=== PATIENT | female | born 1940 | race Caucasian/White ===

== ENCOUNTER → 2021-07-16 00:51 | Outpatient (CLI) | payer MEDICARE, SELFPAY ==
[2021-07-17 10:58] LABS: SARS-CoV-2 RNA PCR Negative
== END ==
PROVIDERS: PCP Family Medicine; Visit Provider Family Medicine
DX: R68.89 Other general symptoms and signs (principal); Z20.822 Contact with and (suspected) exposure to COVID-19
CPT/HCPCS: C9803; U0003; U0005

== ENCOUNTER → 2021-10-20 09:41 | Outpatient (CLI) | payer MEDICARE, SELFPAY ==
--- NOTE | ~2021-10-20 | XR_ITS ---
EXAMINATION: XR chest 2V Exam Date/Time: 10/20/2021 10:03 CDT CLINICAL HISTORY: J44.9 - Chronic obstructive pulmonary disease, unspecified Comparison: 09/25/2016. RESULT: Lines, tubes, and devices: None. Lungs and pleura: Hyperinflation, biapical pleural thickening, senescent changes, otherwise clear. Cardiomediastinal silhouette: Stable cardiomediastinal silhouette. Other: No acute osseous or upper abdominal finding. IMPRESSION: No acute cardiopulmonary process Reviewed, dictated and finalized at location K.
== END ==
PROVIDERS: PCP Family Medicine; Visit Provider Family Medicine
DX: J44.9 Chronic obstructive pulmonary disease, unspecified (principal)
CPT/HCPCS: 71046

== ENCOUNTER 2022-07-05 14:29 | Emergency (ER) | payer MEDICARE, SELFPAY ==
--- NOTE | ~2022-07-05 | XR_ITS ---
XR chest 2V 07/05/2022 15:54 Indication: Cough and shortness of breath. Weakness. Procedure: AP and lateral views of the chest Comparison: 10/20/2021 Findings: Cardiomegaly. Mild interstitial edema. No significant pleural effusion. No pneumothorax. Th ere is atherosclerosis. Impression: 1: Cardiomegaly with mild interstitial edema. Reviewed, dictated and finalized at location A. DIEM RN Impression: 1: Cardiomegaly with mild interstitial edema.
[2022-07-05 14:31] VITALS: BP 123/83; PULSE 95; RESP 14; TEMP 37.6; O2SAT 96
[2022-07-05 14:48] LABS: Basophils Absolute Auto 0.1 K/mm3 (0.0-0.1); Basophils Percent Auto 0.8 % (0.2-1.2); Eosinophils Percent Auto 0.5 % (0-4.4); Hematocrit 34.8 % (37.0-47.0); Hemoglobin 11.8 g/dL (12.0-15.0); Immature Granulocyte Absolute 0.06 K/mm3 (0.00-0.031); Immature Granulocyte Percent A 0.8 % (0-0.5); Lymphocytes Absolute Auto 0.37 K/mm3 (0.9-3.2); Mean Corpuscular HGB Conc 33.9 g/dl (32-36); Mean Corpuscular Hemoglobin 28.8 pg (26-34); Mean Corpuscular Volume 84.9 fl (80-100); Mean Platelet Volume 9.1 fl (7.4-10.4); Monocytes Absolute Auto 0.8 K/mm3 (0.1-0.6); Neutrophils Percent Auto 81.9 % (45.5-73.1); Platelet Count Result 159 k/mm3 (150-375); Red Cell Distribution Width 12.6 % (11.5-14.5); White Blood Count 7.4 K/mm3 (4.5-10.0)
[2022-07-05 14:58] LABS: Alanine Aminotransferase 12 U/L (6-35); Albumin Level 3.9 g/dL (3.5-5.1); Alkaline Phosphatase 50 U/L (38-126); Anion Gap 14 mmol/L (8-16); Aspartate Amino Transferase 26 U/L (14-36); Bilirubin,Total 1.6 mg/dL (0.2-1.3); Blood Urea Nitrogen 31 mg/dL (7-17); Calcium 8.7 mg/dL (8.4-10.2); Carbon Dioxide 18 mmol/L (22-30); Chloride 99 mmol/L (98-107); Estimated CRCL calculation 18 ml/min; Estimated Glomerular Filt Rate 29; Glucose 181 mg/dL (65-110); Potassium 4.4 mmol/L (3.4-5.0); Sodium 131 mmol/L (137-145)
[2022-07-05 16:30] VITALS: BP 130/56; PULSE 91; TEMP 37.7; O2SAT 100
--- NOTE | 2022-07-05 19:28 | ED.SOB ---
HPI - SOB/Dyspnea General Chief Complaint: Shortness of Breath/Dyspnea Stated Complaint: short of breath cough, low O2, copd Time Seen by Provider: 07/05/22 19:15 Source: family Mode of arrival: ambulatory Limitations: dementia History of Present Illness HPI Narrative: 82-year-old with a history of Parkinson's, COPD was brought in by daughter with complaints of shortness of breath. She was diagnosed with COVID at home 3 days ago. Has cough which is nonproductive. No history of fever or chills. Daughter states that she would soon after she got out of the restroom her SPO2 dropped down to 86% however she remains here in 90s. Patient denies any chest pain. No history of nausea or vomiting. However she does complain of poor appetite. MD elicited complaint: shortness of breath and cough Pertinent past history: COPD Onset (ago): day(s) (1) Context: recent illness (Diagnosed with COVID 3 days ago) Timing: improved Severity: mild Exacerbating factors: exertion Relieving factors: nothing Known history of: COPD Treatment prior to arrival: none Related Data Home Medications Medication Instructions Recorded Confirmed cholecalciferol (vitamin D3) 25 1,000 unit PO DAILY 08/03/19 07/04/22 mcg (1,000 unit) capsule Allergies Allergy/AdvReac Type Severity Reaction Status Date / Time Penicillins Allergy Unknown Fainting Verified 10/09/21 14:37 Review of Systems Review of Systems: All systems reviewed & are unremarkable except as noted in HPI and below Constitutional: Constitutional: Reports no additional constitutional complaints Eyes: Eyes: Reports no additional eye complaints ENT: Reports system reviewed and no additional complaints, except as documented Cardiovascular: Cardiovascular: Reports no additional cardiovascular complaints Respiratory: Respiratory: Reports as per HPI Gastrointestinal: Gastrointestinal: Reports no additional gastrointestinal complaints Genitourinary: Genitourinary: Reports no additional female genitourinary complaints Musculoskeletal: Musculoskeletal: Reports no additional musculoskeletal complaints Neurologic: Reports system reviewed and no additional complaints, except as documented Psychiatric: Psychiatric: Reports no additional psychiatric complaints Endocrine: Endocrine: Reports no additional endocrine complaints [facility] Past Medical History Medical History (Updated 07/05/22 @ 19:37 by Miguel Colón MD) History of bone density study (~07/24/12) osteoporosis Family History Family History Father Diabetes mellitus, Onset Age: 88 Acute myocardial infarction, Onset Age: 88 Mother Patient's mother is , Onset Age: 67 Other Family history of cardiovascular disease Social History Social History Smoking status: Former smoker Smoking end date: 06/30/87 Alcohol intake: never Exam Narrative: GENERAL: Well-appearing, well-nourished, and in no acute distress. Hard of hearing HEAD: Normocephalic, atraumatic. EYES: PERRLA and EOMI. NECK: Supple. CHEST: Clear to auscultation. No respiratory distress. HEART: Regular rate and rhythm. No murmur heard. Normal peripheral pulses. ABDOMEN: Soft, nontender, nondistended, normal active bowel sounds. EXTREMITIES: Normal range of motion. No edema. SKIN: Warm, dry, no rash. NEURO: No focal deficits. Alert and oriented x3. PSYCH: Normal mood and affect. Course Course Emergency Course: Patient comfortably resting on the bed with SPO2 of 97 2 to 99% on room air she is in no distress. Informed patient and her daughter about the lab work. She does not want to be admitted. Advised her to try to rest and increase oral intake. Continue home medications. Return to the ER if there is increased shortness of breath. Vital Signs Vital signs: Vital Signs Temperature 37.6 C H 07/05/22 14:31
== END 2022-07-05 20:10 | disposition home or self-care (01) ==
LOC: ANHED 19:51
PROVIDERS: Emergency Medicine; Emergency Provider Family Medicine; PCP Internal Medicine
DX: U07.1 COVID-19 (principal); G20 Parkinson's disease; J44.9 Chronic obstructive pulmonary disease, unspecified; Z87.891 Personal history of nicotine dependence; I51.7 Cardiomegaly; J81.1 Chronic pulmonary edema
CPT/HCPCS: 36415; 71046; 80053; 85025; 99283

== ENCOUNTER 2022-07-22 17:06 | Outpatient (CLI) | payer MEDICARE, SELFPAY ==
[2022-07-22 18:01] LABS: Basophils Percent Auto 0.5 % (0.2-1.2); Eosinophils Absolute Auto 0.2 K/mm3 (0-0.3); Eosinophils Percent Auto 2.4 % (0-4.4); Hematocrit 38.2 % (37.0-47.0); Hemoglobin 12.4 g/dL (12.0-15.0); Immature Granulocyte Absolute 0.03 K/mm3 (0.00-0.031); Immature Granulocyte Percent A 0.4 % (0-0.5); Lymphocytes Absolute Auto 1.54 K/mm3 (0.9-3.2); Lymphocytes Percent Auto 19.3 % (18.3-44.2); Mean Corpuscular HGB Conc 32.5 g/dl (32-36); Mean Corpuscular Hemoglobin 28.5 pg (26-34); Mean Corpuscular Volume 87.8 fl (80-100); Mean Platelet Volume 9.3 fl (7.4-10.4); Monocytes Absolute Auto 0.7 K/mm3 (0.1-0.6); Monocytes Percent Auto 9.3 % (2.6-8.5); Neutrophils Absolute Auto 5.4 K/mm3 (1.3-6.7); Neutrophils Percent Auto 68.1 % (45.5-73.1); Platelet Count Result 252 k/mm3 (150-375); Red Blood Count 4.35 M/mm3 (4.2-5.4); Red Cell Distribution Width 14.1 % (11.5-14.5)
[2022-07-22 18:09] LABS: Alanine Aminotransferase 11 U/L (6-35); Albumin Level 3.8 g/dL (3.5-5.1); Alkaline Phosphatase 83 U/L (38-126); Anion Gap 8 mmol/L (8-16); Aspartate Amino Transferase 23 U/L (14-36); Bilirubin,Total 0.7 mg/dL (0.2-1.3); Blood Urea Nitrogen 26 mg/dL (7-17); Calcium 9.1 mg/dL (8.4-10.2); Carbon Dioxide 20 mmol/L (22-30); Chloride 102 mmol/L (98-107); Estimated Glomerular Filt Rate 25; Glucose 114 mg/dL (65-110); Potassium 5.1 mmol/L (3.4-5.0); Sodium 130 mmol/L (137-145)
== END 2022-07-22 17:07 | disposition home or self-care (01) ==
PROVIDERS: PCP Internal Medicine; Visit Provider Clinical Nurse Specialist
DX: N18.32 Chronic kidney disease, stage 3b (principal); E87.5 Hyperkalemia
CPT/HCPCS: 36415; 80053; 84443; 85025

== ENCOUNTER 2022-07-31 15:45 | Outpatient (CLI) | payer MEDICARE, SELFPAY ==
[2022-07-31 20:08] LABS: Anion Gap 4 mmol/L (8-16); Blood Urea Nitrogen 24 mg/dL (7-17); Calcium 9.2 mg/dL (8.4-10.2); Carbon Dioxide 27 mmol/L (22-30); Chloride 106 mmol/L (98-107); Estimated Glomerular Filt Rate 33; Glucose 210 mg/dL (65-110); Potassium 4.5 mmol/L (3.4-5.0); Sodium 137 mmol/L (137-145)
== END 2022-07-31 15:46 | disposition home or self-care (01) ==
LOC: ANHGOSHLAB 15:47
PROVIDERS: PCP Internal Medicine; Visit Provider Clinical Nurse Specialist
DX: E87.5 Hyperkalemia (principal)
CPT/HCPCS: 36415; 80048

== ENCOUNTER 2022-08-27 19:51 | Emergency (ER) | payer MEDICARE, SELFPAY ==
--- NOTE | ~2022-08-27 | CT_ITS ---
EXAMINATION: CT brain wo con DATE: 08/27/2022 20:29 INDICATION: fall . TECHNIQUE: Computed tomography (CT) of the head was performed without intravenous contrast. The mA wa s adjusted according to patient size. Iterative reconstruction technique was employed. The dose-lengt h product was 605.33 mGy-cm. COMPARISON: None. FINDINGS: No acute intracranial hemorrhage or extra-axial fluid collection. No hydrocephalus, mass, or herniation. No acute ischemic infarct. Unremarkable dural venous sinus attenuation. No acute osseous abnormality. Frontal scalp laceration and contusion. The aerated spaces are clear. Moderate atrophy and mild chronic white matter change. Atherosclerotic intracranial calcification. Bi lateral lens replacements. IMPRESSION: No acute intracranial process. Reviewed, dictated and finalized at location K. [facility] AND BAKER
--- NOTE | ~2022-08-27 | CT_ITS ---
EXAMINATION: CT facial & cervical spine wo DATE: 08/27/2022 20:31 INDICATION: fall TECHNIQUE: Computed tomography (CT) of the maxillofacial region and cervical spine was performed with out intravenous contrast. Automated exposure control and iterative reconstruction technique were empl oyed. The dose-length product was 178.71 mGy-cm. COMPARISON: None FINDINGS: CERVICAL: Vertebral Body Alignment: Intact. Craniocervical and atlantoaxial alignment: Mild degenerative change. Alignment intact. Osseous structures/fracture: No evidence of a lytic or blastic process in the visualized spine. No e vidence of acute fracture. Cervical soft tissues: The paraspinal soft tissues planes are maintained. Moderate aortic arch calcif ication. Senescent changes in the lungs. Biapical pleural scarring. Degenerative changes: Multilevel severe degenerative disc disease. Multilevel mild-moderate facet art hropathy. Severe bilateral neural foraminal narrowing and central canal narrowing at C5-6. FACE: Soft Tissues: Frontal soft tissue contusion and lacerations. Facial bones: No acute fracture. No lytic or blastic process. Eyes: The globes are intact. The soft tissue planes of the orbits are maintained. Paranasal Sinuses: The visualized aerated spaces are clear. Foreign Bodies: No radiopaque foreign bodies. Other Findings: Absent teeth. Periodontal disease. The mandibular canines and incisors are anteriorly angulated. IMPRESSION: No acute fracture or traumatic malalignment in the cervical spine. Anterior angulation of the mandibu lar canines and incisors, correlate for clinical findings of acute dental injury. Otherwise no additi onal acute facial bone fracture detected. Reviewed, dictated and finalized at location K. EU COUNSELOR IMPRESSION: No acute fracture or traumatic malalignment in the cervical spine. Anterior ang ulation of the mandibular canines and incisors, correlate for clinical findings of acute dental injury. Otherwise no additional acute facial bone fracture det ected.
[2022-08-27 19:58] VITALS: BP 122/78; PULSE 83; RESP 19; TEMP 36.7; O2SAT 100
[2022-08-28 00:02] VITALS: BP 144/65; PULSE 77; RESP 18; O2SAT 97
--- NOTE | 2022-08-28 00:19 | ED.FALL ---
HPI - Fall General Chief Complaint: Fall Stated Complaint: fall with head injury Time Seen by Provider: 08/27/22 23:21 Source: patient and family Mode of arrival: ambulatory Limitations: dementia History of Present Illness HPI Narrative: Patient is an 82-year-old female who presents the ED with report of fall with head injury. Family at bedside assisted in providing information. Patient has a history of dementia and is somewhat limited historian. Family reports patient got out of the car without waiting for help and fell to the ground. She did not lose consciousness. She sustained abrasions to her face and nose, and a laceration to her forehead. Family reports fall was mechanical, no signs of patient passing out. They report patient but has been at her baseline over the last couple of days. Patient denies any acute complaints. Denies any areas of pain. Denies chest pain or difficulty breathing. Tetanus status unknown. Related Data Home Medications Medication Instructions Recorded Confirmed cholecalciferol (vitamin D3) 25 1,000 unit PO DAILY 08/03/19 07/31/22 mcg (1,000 unit) capsule Allergies Allergy/AdvReac Type Severity Reaction Status Date / Time Penicillins Allergy Unknown Fainting Verified 08/27/22 19:51 Review of Systems Review of Systems: ROS unobtainable: Yes unobtainable due to mental status PMFSH Past Medical History Medical History Acute hyperkalemia Chronic obstructive pulmonary disease, unspecified COVID-19 Diabetic polyneuropathy associated with type 2 diabetes mellitus History of bone density study (~07/24/12) osteoporosis Mixed hyperlipidemia Occlusion and stenosis of unspecified carotid artery Parkinson disease Poor appetite Pressure ulcer Type 2 diabetes mellitus without complications Family History Family History Father Diabetes mellitus, Onset Age: 88 Acute myocardial infarction, Onset Age: 88 Mother Patient's mother is , Onset Age: 67 Other Family history of cardiovascular disease Social History Social History Smoking status: Former smoker Smoking end date: 06/30/87 Alcohol intake: never Lack of Transportation: No Lack of Food: Never True Current Housing: I Have Housing Concerned About Future Housing: No Difficulty Paying Gas/Electric Bills: No Difficulty Paying for Meds: No Currently Unemployed: No Education: High School Diploma/GED Difficulty w/ Childcare or Family Care: No Exam Narrative: GENERAL: Elderly, thin, non-toxic, in no acute distress. HEAD: Normocephalic. Approximately 2 cm laceration noted to right forehead, bleeding controlled. Smaller more superficial laceration to left forehead, no active bleeding. Scattered abrasions to nose and forehead. EYES: PERRLA/EOMI, conjunctiva clear. No periorbital swelling. ENT: Diffuse dental decay, anterior protrusion of lower teeth due to significant plaque buildup. No malocclusion or trismus. Swelling of right lower lip with area of contusion, no lacerations, no through and through lacerations. NECK: Supple. No adenopathy, no masses. No midline spinal tenderness. RESPIRATORY: Airway patent, respirations nonlabored. Clear to auscultation bilaterally, no rales, rhonchi, wheezing. CARDIOVASCULAR: Regular rate and rhythm without murmurs, rubs, or gallops. Peripheral pulses 2+ and equal bilaterally. ABDOMINAL: Soft, nontender, nondistended, no hepatosplenomegaly. Normoactive BS. MUSCULOSKELETAL: Moves all extremities. Strength/ROM intact without gross deformities. No midline thoracic or lumbar spinal tenderness. No tenderness along hips bilaterally. SKIN: Warm, dry, normal color. No rashes. NEURO: Alert. Frequently re-asks questions. Speech clear. Cranial nerves II-XII grossly intact. Steady
[2022-08-28] MEDS: TETANUS,DIPHTHERIA,AC PERTUSSIS ADULT (0.5 ML) BOOSTRIX IM (00:43)
[2022-08-28] MEDS: LIDOCAINE HCL 1% LOCAL INJ 10 ML VIAL 5 ML INFILTRATE (01:43)
[2022-08-28 01:46] VITALS: BP 153/70; PULSE 76; RESP 15; O2SAT 98
== END 2022-08-28 01:55 | disposition home or self-care (01) ==
PROVIDERS: Emergency Provider Physician Assistant; PCP Internal Medicine
DX: S01.81XA Laceration without foreign body of other part of head, initial encounter (principal); J44.9 Chronic obstructive pulmonary disease, unspecified; Z86.16 Personal history of COVID-19; E11.42 Type 2 diabetes mellitus with diabetic polyneuropathy; E78.5 Hyperlipidemia, unspecified; G20 Parkinson's disease; V48.4XXA Person boarding or alighting a car injured in noncollision transport accident, initial encounter; Z23 Encounter for immunization
CPT/HCPCS: 12011; 70450; 70486; 72125; 90471; 90715; 99284

== ENCOUNTER → 2022-09-05 15:47 | Outpatient (CLI) | payer MEDICARE, SELFPAY ==
--- NOTE | ~2022-09-05 | XR_ITS ---
XR chest 2V DATE: 09/05/2022 16:13 INDICATION: Chronic obstructive pulmonary disease TECHNIQUE: AP and lateral views COMPARISON: 07/05/2022 and lateral chest FINDINGS: Cardiomegaly. Aortic arch calcification. No hilar or mediastinal enlargement. Mild infiltrate or atelectasis at the lung bases. No pleural effusion or pulmonary vascular congestion or pneumothorax. Diffuse osteopenia. Dextroscoliosis of the thoracolumbar spine. IMPRESSION: Cardiomegaly, aortic atherosclerosis Mild infiltrate or atelectasis at the lung bases Osteopenia Reviewed, dictated and finalized at location L. DER SET UP OPERATOR [employer]
== END ==
PROVIDERS: PCP Internal Medicine; Visit Provider Clinical Nurse Specialist
DX: J44.9 Chronic obstructive pulmonary disease, unspecified (principal); M85.88 Other specified disorders of bone density and structure, other site; I51.7 Cardiomegaly; I70.0 Atherosclerosis of aorta
CPT/HCPCS: 71046

== ENCOUNTER 2022-09-06 19:33 | Outpatient (NON) | payer MEDICARE, SELFPAY ==
[2022-09-06 19:43] LABS: Appearance Urine Clear (Clear); Bilirubin Urine 1+ (Negative); Blood Urine Negative (Negative); Color Urine Yellow (Yellow); Glucose Urine UA Negative (Negative); Ketones Urine Trace mg/dL (Negative); Leukocyte Esterase Ur Negative LEU/UL (Negative); Nitrate Urine Negative (Negative); Protein Urine Negative (Negative); Urobilinogen Urine 0.2 mg/dL (<2.0)
[2022-09-06 19:49] LABS: Add Urine Microscopic? YES
[2022-09-06 19:52] LABS: RBC Urine 0-2 /hpf (0-2); Squamous Epithelial Cell Urine Few /hpf (Few); WBC Urine Rare /hpf (0-3)
[2022-09-06 19:53] LABS: Bacteria Urine None seen /hpf
== END 2022-09-06 19:34 | disposition home or self-care (01) ==
LOC: ANHLAB 19:35
PROVIDERS: PCP Internal Medicine; Visit Provider Clinical Nurse Specialist
DX: N39.9 Disorder of urinary system, unspecified (principal)
CPT/HCPCS: 81001

== ENCOUNTER 2022-10-04 13:47 | Outpatient (CLI) | payer MEDICARE, SELFPAY ==
--- NOTE | ~2022-10-04 | US_ITS ---
EXAMINATION: US renal BI DATE: 10/04/2022 14:28 INDICATION: Chronic kidney disease stage III B TECHNIQUE: Multiple grayscale and Doppler ultrasound images of the kidneys were obtained. COMPARISON: None. FINDINGS: The right kidney measures 9.5 x 4.1 x 5.0 cm. The left kidney measures 11.9 x 5.7 x 6.1 cm. The kidneys demonstrate normal parenchymal echogenicity. There is cortical thinning of the kidneys. There is no hydronephrosis. The bladder is normal. IMPRESSION: 1. Cortical thinning of the kidneys without hydronephrosis. Reviewed, dictated and finalized at location B.
== END 2022-10-04 13:48 | disposition home or self-care (01) ==
PROVIDERS: PCP Internal Medicine; Visit Provider Internal Medicine Nephrology
DX: N18.32 Chronic kidney disease, stage 3b (principal); E11.22 Type 2 diabetes mellitus with diabetic chronic kidney disease
CPT/HCPCS: 76775

== ENCOUNTER 2022-10-19 11:27 | Outpatient (CLI) | payer MEDICARE, SELFPAY ==
[2022-10-19 12:17] LABS: Creatinine Urine 109.6 mg/dL
[2022-10-19 12:20] LABS: Albumin Level 4.4 g/dL (3.5-5.1); Anion Gap 10 mmol/L (8-16); Blood Urea Nitrogen 35 mg/dL (7-17); Calcium 9.5 mg/dL (8.4-10.2); Carbon Dioxide 25 mmol/L (22-30); Chloride 104 mmol/L (98-107); Estimated Glomerular Filt Rate 43; Glucose 194 mg/dL (65-110); Phosphorus 3.8 mg/dL (2.5-4.5); Potassium 4.7 mmol/L (3.4-5.0); Sodium 139 mmol/L (137-145)
[2022-10-19 12:25] LABS: Complement C3 112 mg/dL (88-165)
[2022-10-19 13:33] LABS: Total Protein Urine Random < 5 mg/dL; Ur Ttl Prot Creatinine Ratio < 0.05 mg/mg (0-0.20)
[2022-10-23 16:56] LABS: Albumin 3.9 g/dL (3.8-4.8); Alpha 1 Globulin 0.3 g/dL (0.2-0.3); Alpha 2 Globulin 0.7 g/dL (0.5-0.9); Beta 1 Globulin 0.5 g/dL (0.4-0.6); Protein, Total 6.6 g/dL (6.1-8.1)
[2022-10-24 17:49] LABS: Anti Glomerular Basement Memb <1.0 AI (<1.0)
[2022-10-24 19:44] LABS: Creatinine, Random Urine 113 mg/dL (20-275); Total Protein/Creatinine Ratio 80 mg/g creat (24-184)
[2022-10-25 01:41] LABS: ANCA Screen Negative (Negative)
== END 2022-10-19 11:28 | disposition home or self-care (01) ==
PROVIDERS: PCP Internal Medicine; Visit Provider Internal Medicine Nephrology
DX: N18.32 Chronic kidney disease, stage 3b (principal); E11.22 Type 2 diabetes mellitus with diabetic chronic kidney disease
CPT/HCPCS: 36415; 80069; 82570; 83520; 84155; 84156; 84165; 84166; 86036; 86038; 86160; 86225

== ENCOUNTER 2022-11-09 12:30 | Outpatient (CLI) | payer MEDICARE, SELFPAY ==
[2022-11-09 14:14] LABS: Hemoglobin A1C 8.2 % (<5.7)
== END 2022-11-09 12:31 | disposition home or self-care (01) ==
PROVIDERS: PCP Internal Medicine; Visit Provider Clinical Nurse Specialist
DX: E11.9 Type 2 diabetes mellitus without complications (principal)
CPT/HCPCS: 36415; 83036

== ENCOUNTER 2023-02-22 11:46 | Outpatient (CLI) | payer MEDICARE, SELFPAY ==
[2023-02-22 12:35] LABS: Albumin Level 4.1 g/dL (3.5-5.1); Anion Gap 5 mmol/L (8-16); Blood Urea Nitrogen 35 mg/dL (7-17); Calcium 9.7 mg/dL (8.4-10.2); Carbon Dioxide 26 mmol/L (22-30); Chloride 102 mmol/L (98-107); Estimated Glomerular Filt Rate 33; Glucose 275 mg/dL (65-110); Phosphorus 3.8 mg/dL (2.5-4.5); Potassium 4.7 mmol/L (3.4-5.0); Sodium 133 mmol/L (137-145)
[2023-02-22 12:51] LABS: Parathyroid Intact 82.8 pg/mL (7.5-53.5)
[2023-02-22 12:53] LABS: Creatinine Urine 141.6 mg/dL
[2023-02-22 12:57] LABS: Vitamin D 25 Hydroxy 59.3 ng/mL
[2023-02-22 13:06] LABS: Creatinine Urine 141.1 mg/dL
[2023-02-22 13:12] LABS: MALB Creatinine Ratio 17.5 mg/g (0-30); Microalbumin Urine Random 24.7 mg/L (0-16.7)
[2023-02-22 13:31] LABS: Total Protein Urine Random < 5 mg/dL; Ur Ttl Prot Creatinine Ratio < 0.04 mg/mg (0-0.20)
== END 2023-02-22 11:47 | disposition home or self-care (01) ==
PROVIDERS: PCP Internal Medicine; Referring Provider Internal Medicine Nephrology; Visit Provider Clinical Nurse Specialist
DX: E11.22 Type 2 diabetes mellitus with diabetic chronic kidney disease (principal); N18.32 Chronic kidney disease, stage 3b; Z79.4 Long term (current) use of insulin; E55.9 Vitamin D deficiency, unspecified; N25.81 Secondary hyperparathyroidism of renal origin
CPT/HCPCS: 36415; 80069; 82043; 82306; 82570; 83036; 83970; 84156

== ENCOUNTER 2023-04-08 16:07 | Outpatient (NON) | payer MEDICARE, SELFPAY ==
[2023-04-08 18:48] LABS: Appearance Urine Cloudy (Clear); Bacteria Urine None Seen /hpf; Bilirubin Urine Negative (Negative); Blood Urine Negative (Negative); Color Urine Yellow (Yellow); Glucose Urine UA Trace mg/dL (Negative); Ketones Urine Negative (Negative); Leukocyte Esterase Ur 2+ LEU/UL (Negative); Nitrate Urine Negative (Negative); Non Pathogenic Casts 0-2; Protein Urine Negative (Negative); Specific Grav Ur 1.015 (1.001-1.035); Squamous Epithelial Cell Urine Occasional /hpf (Few); Urobilinogen Urine 0.2 mg/dL (<2.0); WBC Urine 21-50 /hpf; pH Urine 6.5 (5.0-9.0)
[2023-04-08 19:00] LABS: Add Urine Microscopic? YES
== END 2023-04-08 16:08 | disposition home or self-care (01) ==
LOC: ANHGOSHLAB 16:08
PROVIDERS: PCP Internal Medicine; Visit Provider Clinical Nurse Specialist
DX: R35.0 Frequency of micturition (principal)
CPT/HCPCS: 81001; 87086; 87088

== ENCOUNTER 2023-08-04 08:49 | Outpatient (CLI) | payer MEDICARE, SELFPAY ==
[2023-08-04 10:06] LABS: Albumin Level 3.8 g/dL (3.5-5.1); Anion Gap 8 mmol/L (8-16); Blood Urea Nitrogen 29 mg/dL (7-17); Carbon Dioxide 29 mmol/L (22-30); Chloride 103 mmol/L (98-107); Estimated Glomerular Filt Rate 39; Glucose 181 mg/dL (65-110); Phosphorus 3.9 mg/dL (2.5-4.5); Sodium 140 mmol/L (137-145)
[2023-08-04 10:15] LABS: Creatinine Urine 211.3 mg/dL; Total Protein Urine Random 6 mg/dL; Ur Ttl Prot Creatinine Ratio 0.03 mg/mg (0-0.20)
== END 2023-08-04 08:50 | disposition home or self-care (01) ==
LOC: ANHLAB 08:51
PROVIDERS: PCP Internal Medicine; Visit Provider Internal Medicine Nephrology
DX: E11.22 Type 2 diabetes mellitus with diabetic chronic kidney disease (principal); N18.32 Chronic kidney disease, stage 3b
CPT/HCPCS: 36415; 80069; 82570; 84156

== ENCOUNTER 2023-08-09 09:39 | Outpatient (CLI) | payer MEDICARE, SELFPAY ==
[2023-08-09 11:00] LABS: Hemoglobin A1C 7.6 % (<5.7)
[2023-08-09 12:15] LABS: Folic Acid 4.8 ng/mL (2.76->20); Vitamin B12 > 1000.0 pg/mL (239-931)
== END 2023-08-09 09:40 | disposition home or self-care (01) ==
LOC: ANHIMG 09:45
PROVIDERS: Clinical Nurse Specialist; PCP Internal Medicine; Visit Provider Student in an Organized Health Care Education/Training Program
DX: R41.89 Other symptoms and signs involving cognitive functions and awareness (principal); E11.9 Type 2 diabetes mellitus without complications
CPT/HCPCS: 36415; 82607; 82746; 83036; 84443

== ENCOUNTER 2023-11-07 11:43 | Outpatient (NON) | payer MEDICARE, SELFPAY ==
[2023-11-07 18:40] LABS: Appearance Urine Clear (Clear); Bilirubin Urine Negative (Negative); Blood Urine Negative (Negative); Color Urine Dark Yellow (Yellow); Glucose Urine UA Trace mg/dL (Negative); Ketones Urine Negative (Negative); Leukocyte Esterase Ur 1+ LEU/UL (Negative); Nitrate Urine Negative (Negative); Protein Urine Negative (Negative); Specific Grav Ur 1.015 (1.001-1.035); pH Urine 5.5 (5.0-9.0)
[2023-11-07 18:43] LABS: Add Urine Microscopic? NO
== END 2023-11-07 11:44 | disposition home or self-care (01) ==
PROVIDERS: PCP Internal Medicine; Visit Provider Clinical Nurse Specialist
DX: R39.9 Unspecified symptoms and signs involving the genitourinary system (principal)
CPT/HCPCS: 81003

== ENCOUNTER 2023-11-13 08:09 | Outpatient (CLI) | payer MEDICARE, SELFPAY | END 2023-11-13 08:10 | disposition home or self-care (01) | LOC: ANHAUDASC 08:10 | PROVIDERS: PCP Internal Medicine; Visit Provider Student in an Organized Health Care Education/Training Program | DX: H91.90 Unspecified hearing loss, unspecified ear (principal) | CPT/HCPCS: 99199 ==

== ENCOUNTER 2023-11-22 09:00 | Outpatient (CLI) | payer MEDICARE, SELFPAY ==
[2023-11-22 09:43] LABS: Anion Gap 9 mmol/L (4-12); Blood Urea Nitrogen 20 mg/dL (7-17); Calcium 10.3 mg/dL (8.4-10.2); Carbon Dioxide 27 mmol/L (22-30); Chloride 103 mmol/L (98-107); Estimated Glomerular Filt Rate 31; Glucose 145 mg/dL (65-110); Potassium 3.3 mmol/L (3.4-5.0); Sodium 139 mmol/L (137-145)
[2023-11-22 09:44] LABS: Hemoglobin A1C 7.8 % (<5.7)
== END 2023-11-22 09:01 | disposition home or self-care (01) ==
LOC: ANHLAB 09:03
PROVIDERS: PCP Internal Medicine; Visit Provider Clinical Nurse Specialist
DX: E11.22 Type 2 diabetes mellitus with diabetic chronic kidney disease (principal); E11.42 Type 2 diabetes mellitus with diabetic polyneuropathy; N18.32 Chronic kidney disease, stage 3b; Z79.4 Long term (current) use of insulin
CPT/HCPCS: 36415; 80048; 83036

== ENCOUNTER 2023-12-13 14:51 | Observation (INO) | payer MEDICARE, SELFPAY ==
--- NOTE | ~2023-12-13 | XR_ITS ---
XR chest 1V portable Ordering provider: Scott Fountain MD History: 83 years Female with . cough, AMS . Comparison: September 05, 2022 FINDINGS: MEDIASTINUM: The cardiac silhouette is not enlarged. LUNGS: No effusion or pneumothorax. Prominent markings in the left lung base is noted. Pneumonitis ca nnot be excluded. Underlying emphysematous changes. OTHER: No free air under the diaphragm. Degenerative changes of the spine. IMPRESSION: Prominent markings in the left lung base with possibility of pneumonitis cannot be excluded. Reviewed, dictated and finalized at location A.
--- NOTE | ~2023-12-13 | CT_ITS ---
CT brain wo con Ordering provider: Scott Fountain MD History: 83 years Female with . AMS . Comparison: August 27, 2022 Technique: CT of the head without contrast. Radiation reduction technique utilized. DLP is 605.33 mGy FINDINGS: BRAIN PARENCHYMA AND CSF SPACES: Deep white matter ischemic changes with mild brain atrophy. No midli ne shift, mass effect or hemorrhage. The brain parenchyma and CSF spaces are otherwise normal. VISUALIZED PARANASAL SINUSES: Left maxillary sinus disease MASTOIDS: Well aerated. BONES: The bones appear intact. SOFT TISSUES: Visualized nasopharynx is normal. Superficial soft tissues are normal. IMPRESSION: No acute intracranial findings. Left mandibular sinusitis. Reviewed, dictated and finalized at location A.
--- NOTE | ~2023-12-13 | XR_ITS ---
MODIFIED ESOPHAGRAM HISTORY: Parkinson's disease. Possible pneumonitis. TECHNIQUE: Modified barium esophagram was performed on 12/15/2023. I administered fluoroscopy and perf ormed the exam with speech pathologist. Patient was seated for lateral fluoroscopic imaging for kayode stion of thin liquids, pudding, solids and quantified amounts, followed by thin liquids in uncontroll ed amounts. This was recorded on tape. A single fluoroscopic spot image was also recorded. The DAP fo r this procedure was 1.88 Gycm2. The amount of fluoroscopy time used during this procedure was 2.8 mi nutes. FINDINGS: Oral stage: Adequate function. Pharyngeal stage: Mild residue in the vallecula and piriform sinuses. No laryngeal penetration or asp iration. Cervical/esophageal stage: Adequate function. IMPRESSION: Patient tolerated regular consistency oral feedings in the upright position. Please dawson elate with speech pathologist findings and specific feeding recommendations. Reviewed, dictated and finalized at location A. IMPRESSION: Patient tolerated regular consistency oral feedings in the upright position. Please correlate with speech pathologist findings and specific feedi ng recommendations.
[2023-12-13 14:51] VITALS: BP 121/63; PULSE 78; RESP 16; TEMP 37.1; O2SAT 97
--- NOTE | 2023-12-13 14:56 | ECG_ITS ---
Test Date: 2023-12-13 15:37:27 Measurements Intervals [place] Rate: 65 P: 30 DE: 165 QRS: 9 QRSD: 101 T: 109 QT: 415 QTc: 435 Interpretive Statements SINUS RHYTHM LOW QRS VOLTAGE IN PRECORDIAL LEADS [QRS DEFLECTION < 1.0 mV IN CHEST LEADS] INFERIOR MYOCARDIAL INFARCTION , PROBABLY OLD [40+ ms Q WAVE AND/OR ST/T ABNORMALITY IN II/aVF] MODERATE T-WAVE ABNORMALITY, CONSIDER LATERAL ISCHEMIA [-0.1+ mV T WAVE IN I/aVL/V5/V6] No previous ECG available for comparison Electronically Signed On 12-14-2023 12:58:05 CDT by Boubacar Lin M.D.
[2023-12-13 15:41] LABS: Basophils Percent Auto 0.5 % (0.2-1.2); Eosinophils Absolute Auto 0.3 K/mm3 (0-0.3); Eosinophils Percent Auto 3.5 % (0-4.4); Hematocrit 34.3 % (37.0-47.0); Immature Granulocyte Absolute 0.01 K/mm3 (0.00-0.031); Immature Granulocyte Percent A 0.1 % (0-0.5); Mean Corpuscular HGB Conc 32.1 g/dl (32-36); Mean Corpuscular Hemoglobin 27.4 pg (26-34); Mean Corpuscular Volume 85.3 fl (80-100); Mean Platelet Volume 9.6 fl (7.4-10.4); Monocytes Absolute Auto 0.7 K/mm3 (0.1-0.6); Monocytes Percent Auto 9.7 % (2.6-8.5); Neutrophils Absolute Auto 4.4 K/mm3 (1.3-6.7); Neutrophils Percent Auto 59.2 % (45.5-73.1); Platelet Count Result 204 k/mm3 (150-375); Red Blood Count 4.02 M/mm3 (4.2-5.4); Red Cell Distribution Width 14.3 % (11.5-14.5); White Blood Count 7.4 K/mm3 (4.5-10.0)
[2023-12-13 15:53] LABS: Alanine Aminotransferase 8 U/L (6-35); Albumin Level 3.5 g/dL (3.5-5.1); Alkaline Phosphatase 55 U/L (38-126); Anion Gap 7 mmol/L (4-12); Aspartate Amino Transferase 23 U/L (14-36); Blood Urea Nitrogen 18 mg/dL (7-17); Calcium 10.2 mg/dL (8.4-10.2); Carbon Dioxide 29 mmol/L (22-30); Chloride 105 mmol/L (98-107); Estimated CRCL calculation 17 ml/min; Estimated Glomerular Filt Rate 24; Glucose 176 mg/dL (65-110); Potassium 2.9 mmol/L (3.4-5.0); Sodium 141 mmol/L (137-145)
[2023-12-13 15:54] LABS: INR 1.1; Prothrombin Time 14.8 Seconds (11.1-14.7)
[2023-12-13 15:55] LABS: Partial Thromboplastin Time 29.5 Seconds (22.3-36.8)
[2023-12-13 16:17] LABS: Influenza A QL RT-PCR Negative (Negative); Influenza B QL RT-PCR Negative (Negative); RSV RNA, RT-PCR Negative (Negative); SARS-CoV-2 RNA PCR Negative (Negative)
[2023-12-13 16:46] VITALS: O2SAT 96
--- NOTE | 2023-12-13 16:56 | ED.AMS ---
HPI - Altered Mental Status General Chief Complaint: Altered Mental Status Stated Complaint: ams Time Seen by Provider: 12/13/23 14:54 History of Present Illness HPI narrative: 83-year-old female presented to the emergency department for evaluation for decreased p.o. intake blood course for the last 2 weeks. Patient does limit the daughter's home and help take care of her. Patient is not from a fpc. Family states that over the last 2 weeks patient has been more somnolent and has had decreased p.o. intake. Patient does have Parkinson's at baseline. Family is working on getting home health evaluation. Family does not want to have the patient placed into a care facility. They are hoping to have the patient treated and hopefully discharged back to their home. Related Data Home Medications Medication Instructions Recorded Confirmed cholecalciferol (vitamin D3) 25 1,000 unit PO DAILY 08/03/19 11/25/23 mcg (1,000 unit) capsule Allergies Allergy/AdvReac Type Severity Reaction Status Date / Time Penicillins Allergy Unknown Fainting Verified 12/13/23 14:57 Review of Systems Review of Systems: All systems reviewed & are unremarkable except as noted in HPI and below PMFSH Past Medical History Medical History (Updated 12/13/23 @ 17:56 by Scott Fountain MD) Acute hyperkalemia Chronic obstructive pulmonary disease, unspecified COVID-19 Diabetic polyneuropathy associated with type 2 diabetes mellitus History of bone density study (~07/24/12) osteoporosis Mixed hyperlipidemia Occlusion and stenosis of unspecified carotid artery Parkinson disease Poor appetite Pressure ulcer Type 2 diabetes mellitus without complications Family History Family History Father Diabetes mellitus, Onset Age: 88 Acute myocardial infarction, Onset Age: 88 Mother Patient's mother is , Onset Age: 67 Other Family history of cardiovascular disease Social History Social History Smoking status: Former smoker Smoking end date: 06/30/87 Alcohol intake: never Substance use: never Substance use type: does not use Do You Feel Safe in your Home?: Yes Lack of Transportation: No Lack of Food: Never True Current Housing: I Have Housing Concerned About Future Housing: No Difficulty Paying Gas/Electric Bills: No Difficulty Paying for Meds: No Currently Unemployed: No Education: High School Diploma/GED Difficulty w/ Childcare or Family Care: No Living arrangements: with family Gender identity (if verbalized by the patient): Female Exam Narrative: APPEARANCE: Somnolent appearing HEAD: normocephalic, atraumatic. EYES: PERRLA/EOMI, conjunctivae clear. NOSE: Normal no drainage EARS:TMS clear with good light reflex. THROAT: Pharynx clear, no exudate. NECK: Supple. No adenopathy, no masses. RESPIRATORY: Airway patent, respirations nonlabored. Clear to auscultation bilaterally, no rales, rhonchi, wheezing. CARDIOVASCULAR: Regular rate and rhythm without murmurs rubs or gallops. ABDOMINAL: Soft, nontender, nondistended, normal bowel sounds MUSCULOSKELETAL: Moves all extremities. Strength/ROM intact, No edema, No calf tenderness. NEURO: Alert. Cranial nerves II through XII intact. Grossly intact SKIN: Warm, dry. Normal Color Course Vital Signs Vital signs: Vital Signs Temperature 98.7 F 12/13/23 14:51 Pulse Rate 78 12/13/23 14:51 Respiratory Rate 16 12/13/23 14:51 Blood Pressure 121/63 12/13/23 14:51 Pulse Oximetry 97 12/13/23 14:51 Temperature 98.7 F 12/13/23 14:51 Pulse Rate 74 12/13/23 18:40 Respiratory Rate 19 12/13/23 18:40 Blood Pressure 151/59 H 12/13/23 18:40 Pulse Oximetry 97 12/13/23 18:40 Oxygen Delivery Room Air 12/13/23 16:46 MDM - Altered Mental Status MDM Narrative Medical decision making n
[2023-12-13 17:26] LABS: Appearance Urine Clear (Clear); Bacteria Urine None Seen /hpf; Bilirubin Urine Negative (Negative); Blood Urine Negative (Negative); Color Urine Yellow (Yellow); Glucose Urine UA Negative (Negative); Ketones Urine Negative (Negative); Leukocyte Esterase Ur Negative LEU/UL (Negative); Need Manual Microscopic Reviewed; Nitrate Urine Negative (Negative); Non Pathogenic Casts 0-2; Protein Urine 1+ mg/dL (Negative); RBC Urine 0-2 /hpf (0-2); Specific Grav Ur 1.015 (1.001-1.035); Squamous Epithelial Cell Urine None Seen /hpf (Few); WBC Urine 0-5 /hpf (0-3); pH Urine 5.5 (5.0-9.0)
[2023-12-13 17:27] LABS: Add Urine Microscopic? YES
[2023-12-13] MEDS: SODIUM CHLORIDE 0.9% IV 1,000 ML 999 ML IV CONT (18:29)
[2023-12-13] MEDS: levoFLOXacin 750 MG/D5W 150 ML 750 MG/150 ML BAG 100 MG IVPB (18:29)
[2023-12-13] MEDS: POTASSIUM CHLORIDE INJ 40 MEQ in SODIUM CHLORIDE 0.9% IV 500 ML 130 MEQ IVPB (18:33)
[2023-12-13 18:40] VITALS: BP 151/59; PULSE 74; RESP 19; O2SAT 97
[2023-12-13 19:09] VITALS: BP 132/68; PULSE 73; RESP 19; O2SAT 100
[2023-12-13 20:00] VITALS: PULSE 80; RESP 16; O2SAT 98
--- NOTE | 2023-12-13 20:16 | ADMGEN ---
This patient, Paris Shaikh, was admitted to 3 [facility] Surg Room 332-01. Patient/family oriented to hospital policies and general routines including ID bracelet, bed and alarms, visiting hours, pain management, procedures, bathroom and other care routines, personal items, smoking policy, room service/diet, and visiting hours. Information on how to activate the Rapid Response Team has been discussed. Patient/Family are encouraged to report perceived risks to care and to ask questions if they do not understand what they are told or what they should do.
[2023-12-13 22:00] VITALS: PULSE 80; RESP 16; TEMP 36.4; O2SAT 98
[2023-12-13 22:08] VITALS: BMI 18.6
[2023-12-13] MEDS: SODIUM CHLORIDE 0.9% IV 1,000 ML 125 ML IV CONT (23:03)
[2023-12-14] VITALS (8 sets, daily range): BP systolic 125; BP diastolic 97; PULSE 74–93; RESP 16–20; TEMP 35.9–36.4; O2SAT 95–96
--- NOTE | 2023-12-14 00:58 | PM.IMHP ---
H&P: HPI History of Present Illness Date/Time: 12/14/23 00:15 Chief Complaint: Altered mental status. Narrative: This is an 83-year-old female with dementia, Parkinson's disease, insulin-dependent diabetes, hypertension, chronic kidney disease, and anxiety who presented to the emergency department via EMS from home for evaluation of altered mental status. She is unable to provide an accurate history and a majority the following is obtained via a review of her EMR as well as information provided by her daughters. The patient is cared for by her 2 daughters and lives at home with 1 of them. She is essentially bedbound/recliner bound but has historically been able to stand and pivot to help transfer. However she has become increasingly weak over the past months and she is no longer able to bear weight. She has required increasing assistance with eating and her appetite and oral intake have been declining. She has lost about 10 to 15 lb in the last few months. On occasion it seems that she will cough with eating but family has not witnessed any episodes concerning for aspiration. She has been sleeping a lot more recently and seems to be more confused which is the reason why she was brought in. There are no reports of fever, cold or flu symptoms, vomiting, or diarrhea. The patient has not voiced any complaints. In the ED: She was afebrile on arrival with stable vital signs. Labs show an increase in creatinine from baseline and hypokalemia. She is being admitted for IV hydration. Review of Systems Review of Systems: Unable to obtain accurately given her dementia. [facility] Past Medical History Medical History (Updated 12/14/23 @ 15:26 by Princess Dorsey PA-C) Anxiety Chronic obstructive pulmonary disease, unspecified COVID-19 Diabetic polyneuropathy associated with type 2 diabetes mellitus History of bone density study (~07/24/12) osteoporosis Mixed hyperlipidemia Occlusion and stenosis of unspecified carotid artery Parkinson disease Type 2 diabetes mellitus without complications Surgical History Surgical History (Updated 12/14/23 @ 15:26 by Princess Dorsey PA-C) History of cataract extraction Family History Family History Father Diabetes mellitus, Onset Age: 88 Acute myocardial infarction, Onset Age: 88 Mother Patient's mother is , Onset Age: 67 Other Family history of cardiovascular disease Social History Social History (Updated 12/14/23 @ 15:27 by Princess Dorsey PA-C) Social History: Surrogate medical decision maker: Kartik Mujica, daughter. Code status: Do not resuscitate. Smoking packs per day: 2 Smoking cigarettes per day: 40.0 Years smoked: 20 Smoking pack-years: 40.00 Smoking status: Former smoker Tobacco type: cigarettes Smoking end date: 06/30/99 Alcohol intake: never Substance use: never Substance use type: does not use Do You Feel Safe in your Home?: Yes Lack of Transportation: No Lack of Food: Never True Current Housing: I Have Housing Concerned About Future Housing: No Difficulty Paying Gas/Electric Bills: No Difficulty Paying for Meds: No Currently Unemployed: No Education: High School Diploma/GED Difficulty w/ Childcare or Family Care: No Living arrangements: with family Spiritual care concerns: No Meds Home Medications and Allergies Home Medications Medication Instructions Recorded Confirmed Type cholecalciferol (vitamin D3) 25 1,000 unit PO DAILY 08/03/19 12/13/23 History mcg (1,000 unit) capsule albuterol sulfate 90 mcg/actuation 1 inh inhalation Q4H PRN shortness 07/04/22 12/13/23 Rx aerosol inhaler of breath or wheezing #8.5 grams blood sugar diagnostic #200 07/31/22 12/13/23 Rx blood-glucose meter #1 ea 07/31/22 12/13/23 Rx lancets 31 gauge #100 07/31/22 12/13/23 Rx insulin glargine 100 unit/mL (3 12 unit (0.12 mL) subcut
[2023-12-14 01:30] LABS: Anion Gap 5 mmol/L (4-12); Blood Urea Nitrogen 16 mg/dL (7-17); Calcium 9.3 mg/dL (8.4-10.2); Carbon Dioxide 26 mmol/L (22-30); Chloride 113 mmol/L (98-107); Estimated CRCL calculation 17 ml/min; Estimated Glomerular Filt Rate 29; Glucose 100 mg/dL (65-110); Magnesium 1.7 mg/dL (1.6-2.3); Potassium 3.4 mmol/L (3.4-5.0); Sodium 144 mmol/L (137-145)
[2023-12-14 02:02] LABS: Creatine Kinase 138 U/L (30-135)
[2023-12-14] MEDS: CARBIDOPA/LEVODOPA 25/100 MG TABLET 1 TABLET PO ×3 (05:32→21:16)
[2023-12-14] MEDS: LACTATED RINGERS 1,000 ML 75 ML IV CONT (05:33)
[2023-12-14 08:09] LABS: Glucose Point of Care 97 mg/dl (65-105)
[2023-12-14 11:36] LABS: Glucose Point of Care 93 mg/dl (65-105)
[2023-12-14] MEDS: ASPIRIN 325 MG TABLET PO (11:42)
[2023-12-14] MEDS: VITAMIN B COMPLEX CAPSULE 1 CAP PO (11:42)
[2023-12-14] MEDS: lisinopriL 5 MG TABLET PO (11:42)
[2023-12-14] MEDS: SIMVASTATIN 20 MG TABLET 40 MG PO (11:42)
[2023-12-14] MEDS: CHOLECALCIFEROL 1,000 UNITS TABLET 1000 UNITS PO (11:42)
[2023-12-14] MEDS: FLUoxetine HCL 10 MG CAPSULE PO (11:45)
--- NOTE | 2023-12-14 13:32 | PCSTNOTE ---
Modified Barium Swallow study will be schedule for Friday morning.
--- NOTE | 2023-12-14 14:21 | P.PNCROSS_ITS ---
Event Note Event Note Event Note: Patient seen at bedside. 25+ minute discussion held with the oldest daughter Elma Shaikh about Paris Shaikh's condition. We discussed the patient's age, COPD, Parkinson's disease and other comorbidities in the setting of progressive decline with weakness, decreased functional status, choking on her sputum production. Goals of care carefully discussed after weighing risks versus benefits of continued aggressive treatment. The daughter was having home health set up this week had the patient not been admitted. The daughter educated on speech language pathologist consultation with swallow studies and evaluation of safe swallowing versus PEG tube, what palliative versus hospice care is in the setting of chronic and serious/end-stage illness. This was done in a compassionate manner and and the life insurance underwriter disclosed that Parkinson's with progressive decline this is an indication the patient could have multiple readmissions to the hospital. The patient's daughter understood and all of her questions were answered. He decided independently to choose to make the patient DNR/DNI as well as likely proceed with hospice. Hospice consult placed for tomorrow December 15, 2023. equipment worker consulted to have surrogate form completed. Patient's daughter reports the patient was agitated overnight and did not sleep. Melatonin 5 mg p.o. q.h.s. p.r.n.. Can use Ativan if needed, discussed with the patient's daughter 1st about the risk. Continue other medications for now a lthough suspect we will move forward with hospice tomorrow at which point continue carbidopa levodopa only. DNR/DNI.
[2023-12-14 16:30] LABS: Glucose Point of Care 110 mg/dl (65-105)
[2023-12-14 21:10] LABS: Glucose Point of Care 146 mg/dl (65-105)
[2023-12-14] MEDS: MELATONIN 5 MG TABLET PO (21:16)
[2023-12-15] VITALS: PULSE 72
[2023-12-15 04:00] VITALS: PULSE 79
[2023-12-15] MEDS: CARBIDOPA/LEVODOPA 25/100 MG TABLET 1 TABLET PO ×3 (05:42→21:15)
[2023-12-15 06:00] VITALS: BP 110/70; PULSE 74; RESP 16; TEMP 36.6; O2SAT 96
[2023-12-15 07:48] LABS: Glucose Point of Care 100 mg/dl (65-105)
[2023-12-15] MEDS: FLUoxetine HCL 10 MG CAPSULE PO (10:37)
[2023-12-15] MEDS: CHOLECALCIFEROL 1,000 UNITS TABLET 1000 UNITS PO (10:37)
[2023-12-15] MEDS: VITAMIN B COMPLEX CAPSULE 1 CAP PO (10:37)
[2023-12-15] MEDS: lisinopriL 5 MG TABLET PO (10:37)
[2023-12-15] MEDS: SIMVASTATIN 20 MG TABLET 40 MG PO (10:37)
--- NOTE | 2023-12-15 11:02 | PCSTNOTE ---
Please refer to the Modified Barium Swallow Evaluation in the EMR.
[2023-12-15 11:35] LABS: Glucose Point of Care 113 mg/dl (65-105)
[2023-12-15 14:00] VITALS: BP 115/75; PULSE 76; RESP 20; TEMP 36.6; O2SAT 98
[2023-12-15 14:16] VITALS: BMI 19.8
[2023-12-15 16:05] LABS: Glucose Point of Care 102 mg/dl (65-105)
--- NOTE | 2023-12-15 16:05 | PM.IMPN ---
Progress Note: A&P Assessment and Plan (1) Abnormal chest x-ray: Code(s): R93.89 - Abnormal findings on diagnostic imaging of other specified body structures Status: Acute (2) Dementia in Parkinson's disease: Code(s): G20.A1 - Parkinson's disease without dyskinesia, without mention of fluctuations; F02.80 - Dementia in other diseases classified elsewhere, unspecified severity, without behavioral disturbance, psychotic disturbance, mood disturbance, and anxiety Status: Acute Plan Hospice consultation has been completed. Possible bed will be delivered to the house tomorrow and that is when we anticipate discharge. No other acute events today. Continue melatonin for sleep at night. Daughter has no concerns. DNR/DNI. Comfort measures may be instituted if the daughter wishes. Continue carbidopa levodopa. Subjective Date/time seen: 12/15/23 16:05 Interval history: Patient seen at bedside. Daughter is again present. No complaints today. Daughter reports the patient slept well last night with melatonin. Will continue. Hospice arrangements are being made. Review of Systems Review of Systems: All systems reviewed & are unremarkable except as noted in HPI and below (Subjective) Exam Const: General: comfortable and no acute distress Other: A&O x2, frail-appearing female HENMT: Other: Poor dentition with coalescing plaques on the lower teeth Eyes: Pupils: Equal, round and reactive pupils present Neck: Neck: supple Resp: Effort & Inspection: normal respiratory effort Auscultation: clear to auscultation bilaterally Cardio: Rate: regular rate Rhythm: regular rhythm GI: GI Palp: Yes Soft to palpation Extrem: General: no edema Objective Data Vital Signs Vital Signs: Vital Signs - 24 hr 12/14/23 21:02 12/14/23 20:00 12/14/23 20:00 Temperature 97.3 F L Pulse Rate 85 88 Respiratory Rate 16 Blood Pressure Pulse Oximetry 96 Oxygen Delivery Room Air 12/15/23 00:00 12/15/23 04:00 12/15/23 06:00 Temperature 97.9 F Pulse Rate 72 79 74 Respiratory Rate 16 Blood Pressure 110/70 Pulse Oximetry 96 Oxygen Delivery 12/15/23 14:00 12/15/23 08:00 Temperature 97.8 F Pulse Rate 76 Respiratory Rate 20 Blood Pressure 115/75 Pulse Oximetry 98 Oxygen Delivery Room Air Intake/Output Intake/Output: Intake & Output 12/12/23 12/13/23 12/14/23 12/15/23 23:59 23:59 23:59 23:59 Intake Total 120 0 Balance 120 0 Meds/Results Medications: Active Medications Generic Name Dose Route Start Last Admin Trade Name Freq PRN Reason Stop Dose Admin Albuterol 1 puff 12/14/23 03:12 Albuterol Sulfate (*Sp) Aerosol 1 Puff INHALATION Q4H PRN shortness of breath or wheezing Aspirin 325 mg 12/14/23 09:00 12/14/23 11:42 Aspirin 325 Mg Tablet PO 325 mg Q48H NARINDER Administration Carbidopa/Levodopa 1 tablet 12/14/23 06:00 12/15/23 15:42 Carbidopa/Levodopa 25/100 Mg Tablet PO 1 tablet Q8HR NARINDER Administration Dextrose 12.5 gm 12/14/23 03:13 Dextrose 50% 25 Gm/50 Ml Syringe IV PUSH PRN PRN Hypoglycemia Protocol Fluoxetine HCl 10 mg 12/14/23 09:00 12/15/23 10:37 Fluoxetine Hcl 10 Mg Capsule PO 10 mg DAILY NARINDER Administration Glucagon 1 mg 12/14/23 03:13 Glucagon For Inj 1 Mg Vial IM PRN PRN Hypoglycemia Protocol Glucose 15 gm 12/14/23 03:13 Glucose Oral Gel 15 Gm Of Glucse In 37.5 Gm Tube PO PRN PRN Hypoglycemia Protocol Levofloxacin/Dextrose 500 mg in 100 mls @ 66.667 mls/hr 12/15/23 18:00 Levaquin 500 Mg/D5w 100 Ml IVPB Q48H NARINDER Dextrose 1,000 mls @ 100 mls/hr 12/14/23 03:13 Dextrose 5% 1,000 Ml IVPB PRN PRN Hypoglycemia Protocol Insulin Aspart 2 - 5 units 12/14/23 08:00 12/15/23 11:38 Insulin Aspart (*Bkc) 100 Units/Ml SUB-Q Not Given TIDWM NARINDER Protocol Insulin Aspart 1 - 2 units
[2023-12-15] MEDS: levoFLOXacin 500 MG/D5W 100 ML 500 MG/100 ML BAG 66.67 MG IVPB (17:51)
[2023-12-15] MEDS: MELATONIN 5 MG TABLET PO (21:15)
[2023-12-15 22:00] VITALS: PULSE 88; RESP 20; TEMP 37.2; O2SAT 97
[2023-12-16] LABS: Glucose Point of Care 110 mg/dl (65-105)
[2023-12-16] MEDS: CARBIDOPA/LEVODOPA 25/100 MG TABLET 1 TABLET PO (05:43)
[2023-12-16 06:00] VITALS: PULSE 87; O2SAT 97
[2023-12-16 08:10] LABS: Glucose Point of Care 81 mg/dl (65-105)
[2023-12-16 08:27] VITALS: O2SAT 97
--- NOTE | 2023-12-16 09:22 | PM.DS ---
DS: Admitting Diagnosis Discharge Date December 16, 2023 Admitting Diagnosis Altered mental status DS: Summary Hospital Course Hospital Course: HPI from admitting JIM This is an 83-year-old female with dementia, Parkinson's disease, insulin-dependent diabetes, hypertension, chronic kidney disease, and anxiety who presented to the emergency department via EMS from home for evaluation of altered mental status. She is unable to provide an accurate history and a majority the following is obtained via a review of her EMR as well as information provided by her daughters. The patient is cared for by her 2 daughters and lives at home with 1 of them. She is essentially bedbound/recliner bound but has historically been able to stand and pivot to help transfer. However she has become increasingly weak over the past months and she is no longer able to bear weight. She has required increasing assistance with eating and her appetite and oral intake have been declining. She has lost about 10 to 15 lb in the last few months. On occasion it seems that she will cough with eating but family has not witnessed any episodes concerning for aspiration. She has been sleeping a lot more recently and seems to be more confused which is the reason why she was brought in. There are no reports of fever, cold or flu symptoms, vomiting, or diarrhea. The patient has not voiced any complaints. In the ED: She was afebrile on arrival with stable vital signs. Labs show an increase in creatinine from baseline and hypokalemia. She is being admitted for IV hydration. ---- Ultimately, the patient's surrogate, daughter Yeiym Shaikh decided to pursue hospice. The patient is stable for discharge on 12/16/2023. She will go home with [facility] with the daughter. Multiple discussions held on goals of care and there concerns and questions were answered to satisfaction. Discharge medication only levodopa carbidopa. DNR/DNI Greater than 35 minute spent discharge planning. Time Spent with Patient Time attestation: Total time spent providing and/or coordinating discharge services: Exam Const: General: comfortable and no acute distress Other: A&O x2, frail-appearing female HENMT: Other: Poor dentition with coalescing plaques on the lower teeth Eyes: Pupils: Equal, round and reactive pupils present Neck: Neck: supple Resp: Effort & Inspection: normal respiratory effort Auscultation: clear to auscultation bilaterally Cardio: Rate: regular rate Rhythm: regular rhythm GI: GI Palp: Yes Soft to palpation Extrem: General: no edema DS: Data Data Completed and Pending Labs on day of discharge: Labs from last 24 hours 12/16/23 12/15/23 12/15/23 08:08 21:02 16:00 POC Capillary Glucose 81 110 H 102 12/15/23 11:29 POC Capillary Glucose 113 H Preliminary micro results at discharge 12/13/23 18:30 Blood Culture - Preliminary Blood 12/13/23 18:30 Blood Culture - Preliminary Blood Discharge Plan Discharge Attending physician on discharge: Sally Wong Discharging Clinician: Sally Wong Patient Disposition: Hospice - Home Activity: may shower Diet: as tolerated Discharge Instructions: Hospice at home. Patient Instructions: Parkinson Disease (GEN) Stand Alone Forms: General Discharge Information Discharge Medications: Continued albuterol sulfate 90 mcg/actuation HFA aerosol inhaler 1 inh inhalation Q4H PRN (Reason: shortness of breath or wheezing) Qty: 8.5 1RF carbidopa-levodopa 25-100 mg tablet 1 tablet PO TID Qty: 270 1RF Discontinued cholecalciferol (vitamin D3) 25 mcg (1,000 unit) capsule 1,000 unit PO DAILY insulin glargine [Lantus Solostar U-100 Insulin] 100 unit/mL (3 mL) insulin pen 12 unit subcut QPM Qty: 15 3RF Rx Instructions: Please eat a snack when taking the medication. vitamin B complex [B Complex-Vitamin B12] Tablet 1 tablet PO DAILY aspirin
[2023-12-16 11:35] LABS: Glucose Point of Care 76 mg/dl (65-105)
[2023-12-16 12:53] LABS: Glucose Point of Care 92 mg/dl (65-105)
--- NOTE | 2023-12-16 13:19 | PC.NURSE ---
Patient resting in bed during morning assessment. Daughter at bedside. Patient going home hospice today and questions and concerns addressed. Patient is kind but confused and non compliant. BG monitored... juice, Ensure, and ice cream offered as needed.
== END 2023-12-16 13:54 | disposition hospice, home (50) ==
LOC: ANHED 17:56 → ANH3MEDSUR 18:56
PROVIDERS: Physician Assistant; Admitting Provider General Practice; Emergency Provider Emergency Medicine; PCP Internal Medicine; Visit Provider Nurse Practitioner Family
DX: E86.0 Dehydration (principal); E87.6 Hypokalemia; R62.7 Adult failure to thrive; R41.82 Altered mental status, unspecified; Z87.891 Personal history of nicotine dependence; E78.2 Mixed hyperlipidemia; G20.A1 Parkinson's disease without dyskinesia, without mention of fluctuations; F02.80 Dementia in other diseases classified elsewhere, unspecified severity, without behavioral disturbance, psychotic disturbance, mood disturbance, and anxiety; Z79.4 Long term (current) use of insulin; N18.9 Chronic kidney disease, unspecified; I12.9 Hypertensive chronic kidney disease with stage 1 through stage 4 chronic kidney disease, or unspecified chronic kidney disease; E11.22 Type 2 diabetes mellitus with diabetic chronic kidney disease; R93.89 Abnormal findings on diagnostic imaging of other specified body structures; Z20.822 Contact with and (suspected) exposure to COVID-19
CPT/HCPCS: 36415; 70450; 71045; 80048; 80053; 81001; 82550; 82948; 83735; 85025; 85610; 85730; 87040; 87637; 92611; 93005; 96374; 96375; 96376; 99285; A9270; G0378; J1956; J3480; J7030; J7040; J7120